=== PATIENT | male | born 1975 | race Caucasian/White ===

== ENCOUNTER 2020-08-25 12:55 | Emergency (ER) | payer OTHER ==
[~2020-08-25] VITALS: Ht 182.9 cm; Wt 86.4 kg
[2020-08-25 13:12] VITALS: TEMP 98.1
[2020-08-25 16:22] VITALS: BP 152/98; PULSE 66
== END 2020-08-25 16:24 | disposition home or self-care (01) ==
LOC: COL.ER 12:55
DX: N48.30 Priapism, unspecified (principal)
CPT/HCPCS: J2270; J2370; J2550